=== PATIENT | female | born 2000 | race Two or more races ===

== ENCOUNTER 2024-02-20 16:15 | Emergency (ER) | payer SELFPAY | END 2024-02-20 19:00 | disposition home or self-care (01) | LOC: JD.ED 16:15 | DX: S80.02XA Contusion of left knee, initial encounter (principal); S80.01XA Contusion of right knee, initial encounter; V89.2XXA Person injured in unspecified motor-vehicle accident, traffic, initial encounter | CPT/HCPCS: 735622650; 73562-50; 99283; 99284 ==